=== PATIENT | female | born 1970 | race Caucasian/White ===

== ENCOUNTER 2018-01-25 19:37 | Inpatient (IN) | payer MEDICARE, MEDICAID ==
[~2018-01-25] VITALS: Ht 162.6 cm; Wt 73.4 kg
[2018-01-25] MEDS ORDERED: ketamine 50 mg/ml 10ml vial IM ONE (20:25)
[2018-01-25] MEDS ORDERED: normal saline 1000ML IV soln IV ONE (20:35)
[2018-01-25] MEDS ORDERED: vancomycin/NS 1 GM ADD-VANTAGE 250 ML IV ONE (20:35)
[2018-01-25] MEDS ORDERED: piperacillin/tazo 3.375gm/50ml 50 ML IV ONE (20:35)
[2018-01-25] MEDS ORDERED: LIDOcaine 1.5% w/epinephrine 1:200,000 5ml ampul IJ ONE (21:35)
[2018-01-25] MEDS ORDERED: bacitracin 15gm ointment TP ONE (21:35)
[2018-01-25] MEDS ORDERED: ondansetron/PF 4mg/2ml inj IV ONE (21:40)
[2018-01-25] MEDS ORDERED: TETanus/Pertussis (Acell)/Diphther VAC/PF (Tdap-Adult) 0.5ml syringe IM ONE (21:40)
[2018-01-25 22:02] LABS: BASOPHILS % (AUTO) 0.3 % (0-1); EOSINOPHILS % (AUTO) 0.3 % (0-6); HEMATOCRIT 35.7 % (35.0-45.0); HEMOGLOBIN 12.4 g/dl (12.0-16.0); LYMPHOCYTES # (AUTO) 1.1 X10'3 (1.1-4.8); LYMPHOCYTES % (AUTO) 14.1 % (21-51); MEAN CORPUSCULAR HEMOGLOBIN 29.9 PG (27.0-31.0); MEAN CORPUSCULAR HGB CONC 34.6 % (33.0-36.5); MEAN CORPUSCULAR VOLUME 86.4 FL (78-98); MEAN PLATELET VOLUME 8.2 FL (7.4-10.4); MONOCYTES # (AUTO) 0.6 X10'3 (0-0.9); MONOCYTES % (AUTO) 7.9 % (2-12); NEUTROPHILS # (AUTO) 6.3 X10'3 (1.8-7.7); NEUTROPHILS % (AUTO) 77.4 % (42-75); PLATELET COUNT 281 X10'3 (140-440); RED BLOOD COUNT 4.14 X10'6 (4.20-5.60); RED CELL DISTRIBUTION WIDTH 13.4 % (11.5-14.5); WHITE BLOOD COUNT 8.1 X10'3 (4.5-11.0)
[2018-01-25] MEDS ORDERED: DOXY100C2 PO (22:26)
[2018-01-25] MEDS ORDERED: CEPH500C2 PO (22:26)
[2018-01-25 23:28] LABS: INR 1.1 INR; PARTIAL THROMBOPLASTIN TIME 26 SECONDS (22-32); PROTHROMBIN TIME 11.1 SECONDS (9.0-12.0)
[2018-01-25 23:31] LABS: ALANINE AMINOTRANSFERASE 22 U/L (12-78); ALBUMIN 2.8 G/DL (3.4-5.0); ALBUMIN/GLOBULIN RATIO 0.8 (1.1-1.5); ALKALINE PHOSPHATASE 81 IU/L (46-116); ANION GAP 11 (8-16); ASPARTATE AMINO TRANSFERASE 17 U/L (10-37); BILIRUBIN,TOTAL 0.3 MG/DL (0.1-1.0); BLOOD UREA NITROGEN 15 MG/DL (7-18); BUN/CREATININE RATIO 23.8 (6.6-38.0); CALCIUM 7.7 MG/DL (8.5-10.1); CHLORIDE 109 MMOL/L (99-107); CREATININE 0.63 MG/DL (0.40-0.90); GLUCOSE 108 MG/DL (70-104); MAGNESIUM 1.8 MG/DL (1.5-2.4); SODIUM 143 MMOL/L (135-145); TOTAL CARBON DIOXIDE 23.5 MMOL/L (24-32); TOTAL PROTEIN 6.5 G/DL (6.4-8.2); eGFR > 90 ML/MIN
[2018-01-26 00:37] LABS: URINE HCG NEGATIVE (NEG)
[2018-01-26 00:51] LABS: CLARITY,URINE CLEAR (Clear); COLOR,URINE YELLOW (Yellow); GLUCOSE, URINE NEGATIVE (Neg); KETONES,URINE TRACE mg/dl (Neg); LEUKOCYTE ESTERASE ,URINE NEGATIVE (Neg); NITRITES, URINE NEGATIVE (Neg); OCCULT BLOOD,URINE TRACE-INTACT (Neg); PH,URINE 5.5 (4.8-8.0); PROTEIN,URINE NEGATIVE (Neg); UROBILINOGEN,URINE 0.2 E.U/dL (0.2-1.0)
[2018-01-26 01:05] LABS: UA COLLECTION TYPE VOIDED
[2018-01-26 01:07] LABS: BACTERIA,URINE NONE SEEN /HPF (Neg); MUCUS STRANDS MANY /LPF (Neg); RBC,URINE 20-50 /HPF (0-2); SQUAMOUS EPITHELIAL CELL,UR FEW /LPF (FEW)
[2018-01-26 01:08] LABS: WBC,URINE 0-4 /HPF (0-4)
[2018-01-26] MEDS ORDERED: magnesium hydroxide 30ml (MOM) UD suspension PO PRN (02:40)
[2018-01-26] MEDS ORDERED: mag hydrox/Alum hydrox/simeth 30ml oral suspension PO PRN (02:40)
[2018-01-26] MEDS ORDERED: ondansetron/PF 4mg/2ml inj IV PRN (02:40)
[2018-01-26] MEDS ORDERED: clindamycin phosphate inj 300 MG in dextrose 5%-water 50ml 48 ML IV SCH ×2 (02:51→09:30)
[2018-01-26] MEDS ORDERED: CLINDAMYCIN IV ONE (05:09)
[2018-01-26] MEDS ORDERED: [UNRECOGNIZED DRUG - OTHER] IV ONE (05:09)
[2018-01-26] MEDS ORDERED: potassium Cl 40MEQ/NS 500ml 500 ML IV PRN ×2 (08:00)
[2018-01-26] MEDS ORDERED: potassium Cl 20 mEq SR tablet PO PRN ×2 (08:00)
[2018-01-26] MEDS ORDERED: enoxaparin 40mg/0.4ml syringe SUBCUT SCH (08:00)
[2018-01-26] MEDS ORDERED: magnesium 4gm in 100ml NS 100 ML IV PRN (08:00)
[2018-01-26] MEDS ORDERED: magnesium Cl slow-release 64mg tablet PO PRN (08:00)
[2018-01-26] MEDS ORDERED: magnesium 1gm/100ml D5W IVPB 100 ML IV PRN (08:00)
[2018-01-26] MEDS ORDERED: clindamycin 600mg/D5W 50ml 50 ML IV SCH (08:00)
[2018-01-26] MEDS: piperacillin/tazo 3.375gm/50ml 50 ML IV SCH ×3 (08:58→21:52)
[2018-01-26] MEDS: vancomycin/NS 1 GM ADD-VANTAGE 250 ML IV SCH ×2 (14:02→22:51)
[2018-01-26] MEDS: acetaminophen 325mg tablet PO PRN (14:02)
[2018-01-26] MEDS ORDERED: NO HOME MEDS (14:19)
[2018-01-26 18:00] VITALS: BP 101/68
[2018-01-26] MEDS ORDERED: HYDROcodone/acetaminophen 10/325mg tab PO PRN (18:15)
[2018-01-26] MEDS ORDERED: HYDROcodone/acetaminophen 5mg/325mg tablet PO PRN (18:20)
[2018-01-26] MEDS: lactobacillus rhamnosus 10,000 MMU CELLS/CAPSULE PO SCH (21:04)
[2018-01-26] MEDS: dextrose 5%-normal saline 1,000 ML IV SCH (21:05)
[2018-01-26 22:00] VITALS: BP 112/66
[2018-01-27] VITALS (8 sets, daily range): BP systolic 88–101; BP diastolic 53–65
[2018-01-27] MEDS: piperacillin/tazo 3.375gm/50ml 50 ML IV SCH ×4 (03:01→19:38)
[2018-01-27] MEDS: vancomycin/NS 1 GM ADD-VANTAGE 250 ML IV SCH ×2 (05:53→13:38)
[2018-01-27 06:14] LABS: MAGNESIUM 2.2 MG/DL (1.5-2.4); POTASSIUM 3.6 MMOL/L (3.5-5.1)
[2018-01-27] MEDS: lactobacillus rhamnosus 10,000 MMU CELLS/CAPSULE PO SCH ×2 (08:00→19:38)
[2018-01-27 09:40] LABS: BASOPHILS % (AUTO) 0.4 % (0-1); EOSINOPHILS # (AUTO) 0.1 X10'3 (0-0.9); EOSINOPHILS % (AUTO) 1.6 % (0-6); LYMPHOCYTES # (AUTO) 1.1 X10'3 (1.1-4.8); LYMPHOCYTES % (AUTO) 23.1 % (21-51); MEAN CORPUSCULAR HEMOGLOBIN 30.1 PG (27.0-31.0); MEAN CORPUSCULAR HGB CONC 34.3 % (33.0-36.5); MEAN CORPUSCULAR VOLUME 87.8 FL (78-98); MONOCYTES # (AUTO) 0.4 X10'3 (0-0.9); NEUTROPHILS # (AUTO) 3.2 X10'3 (1.8-7.7); NEUTROPHILS % (AUTO) 65.9 % (42-75); PRE OP HEMATOCRIT 34.2 % (35.0-45.0); PRE OP HEMOGLOBIN 11.8 g/dL (12.0-16.0); PRE OP PLATELET COUNT 269 X10'3 (140-440); RED CELL DISTRIBUTION WIDTH 13.6 % (11.5-14.5)
[2018-01-27] MEDS ORDERED: fentaNYL/PF 50MCG/1 ML 2ML syringe ONE (11:43)
[2018-01-27] MEDS ORDERED: sevoflurane 250ml liquid IH ONE (11:43)
[2018-01-27] MEDS ORDERED: midazolam 2 mg/2 ml injection ONE (11:44)
[2018-01-27] MEDS ORDERED: ceFAZolin 1000mg inj ONE (12:41)
[2018-01-27] MEDS ORDERED: propofol inj 20 ML IV ONE (12:41)
[2018-01-27] MEDS ORDERED: VANCOMYCIN LEVEL IV ONE (13:30)
[2018-01-27] MEDS: dextrose 5%-normal saline 1,000 ML IV SCH (19:42)
[2018-01-27] MEDS: vancomycin inj 1,250 MG in normal saline 250ml IV soln 250 ML IV SCH (21:59)
[2018-01-28] MEDS: piperacillin/tazo 3.375gm/50ml 50 ML IV SCH ×4 (02:15→19:54)
[2018-01-28 06:00] VITALS: BP 103/61
[2018-01-28] MEDS: vancomycin inj 1,250 MG in normal saline 250ml IV soln 250 ML IV SCH ×3 (06:27→22:00)
[2018-01-28 06:35] LABS: MAGNESIUM 2.1 MG/DL (1.5-2.4); POTASSIUM 3.6 MMOL/L (3.5-5.1)
[2018-01-28] MEDS: lactobacillus rhamnosus 10,000 MMU CELLS/CAPSULE PO SCH ×2 (07:23→19:54)
[2018-01-28 10:00] VITALS: BP 89/52
[2018-01-28] MEDS: acetaminophen 325mg tablet PO PRN ×2 (10:10→17:53)
[2018-01-28] MEDS: dextrose 5%-normal saline 1,000 ML IV SCH (10:15)
[2018-01-28 11:34] VITALS: BP 115/71
[2018-01-28 18:00] VITALS: BP 107/61
[2018-01-28] MEDS ORDERED: VANCOMYCIN LEVEL IV ONE (21:30)
[2018-01-28 22:00] VITALS: BP 97/59
[2018-01-29] MEDS: piperacillin/tazo 3.375gm/50ml 50 ML IV SCH ×2 (02:33→07:18)
[2018-01-29 06:00] VITALS: BP 90/46
[2018-01-29] MEDS: dextrose 5%-normal saline 1,000 ML IV SCH (06:15)
[2018-01-29 06:53] LABS: ALBUMIN 2.7 G/DL (3.4-5.0); ANION GAP 11 (8-16); BILIRUBIN,TOTAL 0.3 MG/DL (0.1-1.0); BLOOD UREA NITROGEN 6 MG/DL (7-18); BUN/CREATININE RATIO 5.8 (6.6-38.0); CALCIUM 8.6 MG/DL (8.5-10.1); CHLORIDE 113 MMOL/L (99-107); CREATININE 1.04 MG/DL (0.40-0.90); GLUCOSE 103 MG/DL (70-104); MAGNESIUM 2.3 MG/DL (1.5-2.4); POTASSIUM 3.5 MMOL/L (3.5-5.1); SODIUM 149 MMOL/L (135-145); TOTAL CARBON DIOXIDE 24.9 MMOL/L (24-32); TOTAL PROTEIN 6.5 G/DL (6.4-8.2); eGFR 57 ML/MIN
[2018-01-29 06:54] LABS: ALANINE AMINOTRANSFERASE 23 U/L (12-78); ALBUMIN/GLOBULIN RATIO 0.7 (1.1-1.5); ALKALINE PHOSPHATASE 73 IU/L (46-116); ASPARTATE AMINO TRANSFERASE 22 U/L (10-37)
[2018-01-29] MEDS: lactobacillus rhamnosus 10,000 MMU CELLS/CAPSULE PO SCH (07:18)
[2018-01-29] MEDS ORDERED: potassium cl 20mEq in 1/2 NS 1,000 ML IV SCH (07:45)
[2018-01-29] MEDS ORDERED: VANCOMYCIN 750MG IV in NS 250 ML IV SCH (09:00)
[2018-01-29 10:00] VITALS: BP 96/54
[2018-01-29] MEDS ORDERED: levoFLOXACIN-Levaquin 500mg/D5 100 ML IV SCH (10:10)
[2018-01-29] MEDS: clindamycin 600mg/D5W 50ml 50 ML IV SCH ×2 (10:46→14:00)
[2018-01-29 12:19] LABS: ALBUMIN 2.9 G/DL (3.4-5.0); ANION GAP 11 (8-16); BLOOD UREA NITROGEN 8 MG/DL (7-18); BUN/CREATININE RATIO 7.4 (6.6-38.0); CHLORIDE 108 MMOL/L (99-107); CREATININE 1.08 MG/DL (0.40-0.90); GLUCOSE 115 MG/DL (70-104); POTASSIUM 3.5 MMOL/L (3.5-5.1); SODIUM 145 MMOL/L (135-145); TOTAL CARBON DIOXIDE 26.3 MMOL/L (24-32); eGFR 55 ML/MIN
[2018-01-29] MEDS ORDERED: LEVO500T2 PO (12:42)
[2018-01-29] MEDS ORDERED: METR500T4 PO (12:42)
[2018-01-29] MEDS ORDERED: HYDR-569 PO (12:42)
[2018-01-30] MEDS ORDERED: VANCOMYCIN LEVEL IV ONE (08:30)
== END 2018-01-29 15:45 | disposition home health service (06) | DRG 854 ==
LOC: ER 19:37 → ED HOLD 01-26 02:36 → OBSVTOIN 01-26 02:36 → ORTHO 4S 01-26 16:00
PROVIDERS: ADMIT Internal Medicine; ATTEND Internal Medicine
PROC: 0H96XZZ Drainage of Back Skin, External Approach (ICD-10-PCS; 2018-01-25)
PROC: 0W9K0ZZ Drainage of Upper Back, Open Approach (ICD-10-PCS; 2018-01-27)
PROC: 0JB70ZZ Excision of Back Subcutaneous Tissue and Fascia, Open Approach (ICD-10-PCS; principal; 2018-01-27 11:43)
DX: A41.9 Sepsis, unspecified organism (principal); F84.0 Autistic disorder; E87.0 Hyperosmolality and hypernatremia; L72.3 Sebaceous cyst; M26.09 Other specified anomalies of jaw size; R62.50 Unspecified lack of expected normal physiological development in childhood
CPT/HCPCS: 10060; 36415; 71045; 80048; 80053; 80202; 81001; 81025; 83605; 83735; 84132; 84145; 85025; 85610; 85730; 87040; 87070; 87075; 88304; 90715; 93005; 99285; A6212; A6253; A6266; A6449; A7000; J0690; J1650; J1956; J2250; J2405; J2543; J2704; J3010; J3370; J3490; J7030; J7042; J7060; J7070; J7120

== ENCOUNTER 2018-02-02 22:35 | Emergency (ER) | payer MEDICARE, MEDICAID ==
[~2018-02-02] VITALS: Ht 165.1 cm; Wt 64.4 kg
[~2018-02-02 22:35] MED LIST: HYDR-569 PO; LEVO500T2 PO; METR500T4 PO
[2018-02-02 23:55] VITALS: BP 115/83
== END 2018-02-03 00:27 | disposition home or self-care (01) ==
LOC: ER 22:36
DX: S21.209A Unspecified open wound of unspecified back wall of thorax without penetration into thoracic cavity, initial encounter (principal); R55 Syncope and collapse; J45.909 Unspecified asthma, uncomplicated; Z79.899 Other long term (current) drug therapy; X58.XXXA Exposure to other specified factors, initial encounter; Y93.89 Activity, other specified; Y92.89 Other specified places as the place of occurrence of the external cause; Y99.8 Other external cause status
CPT/HCPCS: 93005; 99283

== ENCOUNTER 2018-02-11 08:26 | Outpatient (CLI) | payer MEDICARE, MEDICAID ==
[2018-02-11] MEDS ORDERED: LIDOcaine 2% 5ml jelly ONE (08:56)
== END 2018-02-11 09:56 | disposition home or self-care (01) ==
LOC: WOUND CARE 08:26 → EDSTATUS 08:30 → WOUND CARE 09:56
PROVIDERS: ATTEND Surgery
DX: T81.89XA Other complications of procedures, not elsewhere classified, initial encounter (principal); L98.422 Non-pressure chronic ulcer of back with fat layer exposed; J45.909 Unspecified asthma, uncomplicated; Z79.899 Other long term (current) drug therapy; Y83.8 Other surgical procedures as the cause of abnormal reaction of the patient, or of later complication, without mention of misadventure at the time of the procedure
CPT/HCPCS: 99215; A6021; A6206; A6212

== ENCOUNTER 2018-02-18 08:37 | Day surgery (SDC) | payer MEDICARE, MEDICAID ==
[2018-02-18] MEDS ORDERED: LIDOcaine 2% 5ml jelly ONE (09:50)
[2018-02-18] MEDS ORDERED: NO HOME MEDS (14:19)
== END 2018-02-18 10:16 | disposition home or self-care (01) ==
LOC: WOUND CARE 08:37
PROVIDERS: ATTEND Surgery
DX: T81.89XD Other complications of procedures, not elsewhere classified, subsequent encounter (principal); L98.422 Non-pressure chronic ulcer of back with fat layer exposed; J45.909 Unspecified asthma, uncomplicated; Z79.899 Other long term (current) drug therapy; Y83.8 Other surgical procedures as the cause of abnormal reaction of the patient, or of later complication, without mention of misadventure at the time of the procedure
CPT/HCPCS: 97597; A6021; A6206; A6212

== ENCOUNTER 2018-02-25 08:20 | Outpatient (CLI) | payer MEDICARE, MEDICAID ==
[~2018-02-25 08:20] MED LIST changes: -HYDR-569 PO; -LEVO500T2 PO; -METR500T4 PO; +NO HOME MEDS
[2018-02-25] MEDS ORDERED: LIDOcaine 2% 5ml jelly ONE (09:25)
== END 2018-02-25 10:21 | disposition home or self-care (01) ==
LOC: WOUND CARE 08:20 → EDSTATUS 08:30 → WOUND CARE 10:21
PROVIDERS: ATTEND Surgery
DX: T81.89XD Other complications of procedures, not elsewhere classified, subsequent encounter (principal); L98.422 Non-pressure chronic ulcer of back with fat layer exposed; J45.909 Unspecified asthma, uncomplicated; Z79.899 Other long term (current) drug therapy; Y83.8 Other surgical procedures as the cause of abnormal reaction of the patient, or of later complication, without mention of misadventure at the time of the procedure
CPT/HCPCS: 99215; A6021; A6212

== ENCOUNTER 2018-03-13 09:19 | Outpatient (CLI) | payer MEDICARE, MEDICAID | END 2018-03-13 10:47 | disposition home or self-care (01) | LOC: WOUND CARE 09:19 → EDSTATUS 09:30 → WOUND CARE 10:47 | PROVIDERS: ATTEND Surgery | DX: T81.89XD Other complications of procedures, not elsewhere classified, subsequent encounter (principal); L98.422 Non-pressure chronic ulcer of back with fat layer exposed; J45.909 Unspecified asthma, uncomplicated; L72.3 Sebaceous cyst; Z79.899 Other long term (current) drug therapy; Y83.8 Other surgical procedures as the cause of abnormal reaction of the patient, or of later complication, without mention of misadventure at the time of the procedure | CPT/HCPCS: 99215; A6212 ==